=== PATIENT | female | born 1960 | race Caucasian/White ===

== ENCOUNTER → 2021-09-02 | Outpatient (REF) | payer BC | LOC: M LAB REF 15:57 | DX: R19.7 Diarrhea, unspecified (principal) ==

== ENCOUNTER → 2022-02-25 | Outpatient (REF) | LOC: M PLALAB 11:32 | PROVIDERS: ATTEND Internal Medicine | DX: Z11.52 Encounter for screening for COVID-19 (principal) ==

== ENCOUNTER → 2022-09-23 | Outpatient (REF) | LOC: M PLAIMG 11:05 | PROVIDERS: ATTEND Internal Medicine | DX: M47.816 Spondylosis without myelopathy or radiculopathy, lumbar region (principal); M50.30 Other cervical disc degeneration, unspecified cervical region; M85.88 Other specified disorders of bone density and structure, other site ==

== ENCOUNTER 2023-09-22 09:52 | Outpatient (RCR) | payer BC | END 2023-10-10 | LOC: M PT 09:52 | PROVIDERS: ATTEND Student in an Organized Health Care Education/Training Program | DX: G35 Multiple sclerosis (principal) ==

== ENCOUNTER → 2023-10-05 | Outpatient (REF) | payer BC ==
[2023-10-05 18:37] LABS: ALBUMIN 3.5 G/DL (3.2-5.2); ALKALINE PHOSPHATASE 89 U/L (46-116); ALT/SGPT 20 U/L (7.0-40); AST/SGOT 13 U/L (<34); BILIRUBIN,TOTAL 0.6 MG/DL (0.3-1.2); BLOOD UREA NITROGEN 15 MG/DL (9-23); CALCIUM LEVEL 9.4 MG/DL (8.3-10.6); CARBON DIOXIDE LEVEL 30 MMOL/L (20-31); CHLORIDE LEVEL 105 MMOL/L (98-107); CHOLESTEROL LEVEL 234 MG/DL (<200); CHOLESTEROL RISK RATIO 5.06 (<5); CREATININE FOR GFR 0.77 MG/DL (0.55-1.30); GLOMERULAR FILTRATION RATE > 60.0 (>45); GLUCOSE, FASTING 137 MG/DL (74-106); HDL CHOLESTEROL 46.2 MG/DL (>40); LDL CHOLESTEROL 149.2 MG/DL (<100); NON-HDL-C 187.8 MG/DL; POTASSIUM SERUM 4.5 MMOL/L (3.5-5.1); SODIUM LEVEL 140 MMOL/L (136-145); TOTAL PROTEIN 6.2 G/DL (5.7-8.2); TRIGLYCERIDES LEVEL 193 MG/DL (<150)
[2023-10-05 18:38] LABS: TOTAL 25(OH) VITAMIN D 75.7 NG/ML (20.0-100.0)
== END ==
LOC: M LABDRAWC 16:40
PROVIDERS: ATTEND Internal Medicine
DX: T45.2X1A Poisoning by vitamins, accidental (unintentional), initial encounter (principal); E78.00 Pure hypercholesterolemia, unspecified